=== PATIENT | female | born 1955 | race Caucasian/White ===

== ENCOUNTER 2017-08-29 16:42 | Inpatient (IN) | payer MEDICARE, MEDICAID, OTHER ==
[~2017-08-29] VITALS: Ht 165.1 cm; Wt 72.4 kg
[2017-08-29 17:47] VITALS: BP 158/72; PULSE 86; RESP 18; TEMP 98.4; O2SAT 97
--- NOTE | 2017-08-29 17:57 | PD ---
HPI Chief Complaint: Suicide Ideation/Attempt Time Seen by Provider: 17:40 Travel History International Travel<30 days: No Contact w/Intl Traveler<30days: No Traveled to known affect area: No History of Present Illness HPI Patient is a 62-year-old female who presents to emergency room under Cha act for suicidal ideation. Patient reports that she attempted to commit suicide by cutting her left wrist today with a razor blade, that she is depressed, reports history of bipolar disorder with severe depression, reports that she thinks that her niece called police officers today. Patient reports that she tried to commit suicide in the past, usually this is by cutting. Patient reports that she has been compliant with her medications, denies use of any alcohol or drugs. Patient reports that her tetanus is up-to-date. PFSH Past Medical History Bipolar Disorder: Yes Depression: Yes Diabetes: Yes Patient Takes Glucophage: Yes Influenza Vaccination: Yes ?: Not Tubal Ligation: Yes Past Surgical History Surgical History: No Previous Surgery Social History Alcohol Use: Yes (occasionally) Tobacco Use: No Substance Use: No Allergies-Medications (Allergen,Severity, Reaction): Coded Allergies: No Known Allergies (Unverified , 08/29/17) Reported Meds & Prescriptions Reported Meds & Active Scripts Active Active Prescriptions or Reported Medications Unobtainable Review of Systems General / Constitutional: No: Fever Eyes: No: Visual changes HENT: No: Headaches Cardiovascular: No: Chest Pain or Discomfort Respiratory: No: Shortness of Breath Gastrointestinal: No: Abdominal Pain Genitourinary: No: Dysuria Musculoskeletal: No: Pain Skin: No Rash Neurologic: No: Weakness Psychiatric: Positive: Depression, Suicidal Ideations, No: Homicidal Ideation Endocrine: No: Polydipsia Hematologic/Lymphatic: No: Easy Bruising Physical Exam Narrative GENERAL: NAD SKIN: Focused skin assessment warm/dry. Patient with a superficial laceration to left wrist HEAD: Atraumatic. Normocephalic. EYES: Pupils equal and round. No scleral icterus. No injection or drainage. ENT: No nasal bleeding or discharge. Mucous membranes pink and moist. NECK: Trachea midline. No JVD. CARDIOVASCULAR: Regular rate and rhythm. No murmur appreciated. RESPIRATORY: No accessory muscle use. Clear to auscultation. Breath sounds equal bilaterally. GASTROINTESTINAL: Abdomen soft, non-tender, nondistended. Hepatic and splenic margins not palpable. MUSCULOSKELETAL: No obvious deformities. No clubbing. No cyanosis. No edema. NEUROLOGICAL: Awake and alert. No obvious cranial nerve deficits. Motor grossly within normal limits. Normal speech. PSYCHIATRIC: Flat mood and affect; +SI -HI Data Data Last Documented VS Vital Signs Date Time Temp Pulse Resp B/P (MAP) Pulse Ox O2 Delivery O2 Flow Rate FiO2 08/29/17 17:47 98.4 86 18 158/72 (100) 97 Room Air Orders Orders Complete Blood Count With Diff (08/29/17 17:40) Comprehensive Metabolic Panel (08/29/17 17:40) Psych Screen (08/29/17 17:40) Drug Screen, Random Urine (08/29/17 17:40) Alcohol (Ethanol) (08/29/17 17:40) Salicylates (Aspirin) (08/29/17 17:40) Tylenol (Acetaminophen) (08/29/17 17:40) Labs Laboratory Tests Test 08/29/17 18:10 White Blood Count 11.7 TH/MM3 Red Blood Count 3.59 MIL/MM3 Hemoglobin 10.7 GM/DL Hematocrit 32.2 % Mean Corpuscular Volume 89.6 FL Mean Corpuscular Hemoglobin 29.6 PG Mean Corpuscular Hemoglobin Concent 33.1 % Red Cell Distribution Width 13.4 % Platelet Count 320 TH/MM3 Mean Platelet Volume 7.7 FL Neutrophils (%) (Auto) 67.1 % Lymphocytes (%) (Auto) 22.0 % Monocytes (%) (Auto) 6.5 % Eosinophils (%) (Auto) 4.0 % Basophils (%) (Auto) 0.4 % Neutrophils # (Auto) 7.9 TH/MM3 Lymphocytes # (Auto) 2.6 TH/MM3 Monocytes # (Auto) 0.8 TH/MM3 Eosinophils # (Auto) 0.5 TH/MM3 Basophils # (Auto) 0.0 TH/MM3 CBC Comment DIFF FINAL Differential Comment Blood Urea Nitrogen 21 MG/DL Creatinine 1.65 MG/DL Random Glucose 130 MG/DL Total Protein 7.4 GM/DL Albumin 4.2 GM/DL Calcium Level 9.1 MG/DL Alkaline Phosphatase 45 U/L Aspartate Amino Transf (AST/SGOT) 33 U/L Alanine Aminotransferase (ALT/SGPT) 35 U/L Total Bilirubin 0.6 MG/DL Sodium Level 134 MEQ/L Potassium Level 4.6 MEQ/L Chloride Level 98 MEQ/L Carbon Dioxide Level 27.4 MEQ/L Anion Gap 9 MEQ/L Estimat Glomerular Filtration Rate 31 ML/MIN Salicylates Level LESS THAN 1.7 MG/DL Acetaminophen Level LESS THAN 2.0 MCG/ML Ethyl Alcohol Level LESS THAN 3 MG/DL MDM Medical Decision Making Medical Screen Exam Complete: Yes Emergency Medical Condition: Yes Medical Record Reviewed: Yes Interpretation(s) Vital Signs Date Time Temp Pulse Resp B/P (MAP) Pulse Ox O2 Delivery O2 Flow Rate FiO2 08/29/17 17:47 98.4 86 18 158/72 (100) 97 Room Air Differential Diagnosis Suicide ideation, bipolar disorder, major depressive disorder Narrative Course Psychiatric screening labs ordered, with superficial abrasions to her left wrist , no active bleeding, tetanus is up-to-date. CBC & BMP Diagram 08/29/17 18:10 Total Protein 7.4, Albumin 4.2, Calcium Level 9.1, Alkaline Phosphatase 45, Aspartate Amino Transf (AST/SGOT) 33, Alanine Aminotransferase (ALT/SGPT) 35, Total Bilirubin 0.6 Diagnosis Primary Impression: Suicidal ideations Additional Impressions: Anemia Renal insufficiency Scripts Unable to Obtain Active Prescriptions or Reported Meds Nisa Bennett DO Aug 29, 2017 17:57
[2017-08-29 19:07] LABS: AUTOMATED NEUTROPHIL # 7.9 TH/MM3 (1.8-7.7); BASOPHIL % 0.4 % (0.0-2.0); EOSINOPHIL # 0.5 TH/MM3 (0-0.4); HEMATOCRIT 32.2 % (35.0-46.0); HEMOGLOBIN 10.7 GM/DL (11.6-15.3); LYMPHOCYTE # 2.6 TH/MM3 (1.0-4.8); MEAN CELL VOLUME 89.6 FL (80.0-100.0); MEAN CORPUSCULAR HEMOGLOBIN 29.6 PG (27.0-34.0); MEAN CORPUSCULAR HGB CONC 33.1 % (32.0-36.0); MEAN PLATELET VOLUME 7.7 FL (7.0-11.0); MONO % 6.5 % (0.0-8.0); MONOCYTE # 0.8 TH/MM3 (0-0.9); NEUT % 67.1 % (16.0-70.0); PLATELET COUNT 320 TH/MM3 (150-450); RED BLOOD COUNT 3.59 MIL/MM3 (4.00-5.30); RED CELL DISTRIBUTION WIDTH 13.4 % (11.6-17.2); WHITE BLOOD COUNT 11.7 TH/MM3 (4.0-11.0)
[2017-08-29 19:25] LABS: ALT (GPT) 35 U/L (10-53)
[2017-08-29 19:27] LABS: ALKALINE PHOSPHATASE 45 U/L (45-117); TOTAL BILIRUBIN ADULT 0.6 MG/DL (0.2-1.0); TOTAL PROTEIN 7.4 GM/DL (6.4-8.2)
[2017-08-29 19:37] LABS: ACETAMINOPHEN LESS THAN 2.0 MCG/ML (10.0-30.0); ALBUMIN 4.2 GM/DL (3.4-5.0); AST (GOT) 33 U/L (15-37); BICARBONATE 27.4 MEQ/L (21.0-32.0); BLOOD UREA NITROGEN 21 MG/DL (7-18); CALCIUM 9.1 MG/DL (8.5-10.1); CHLORIDE 98 MEQ/L (98-107); CREATININE 1.65 MG/DL (0.50-1.00); GLOMERULAR FILTRATION RATE 31 ML/MIN (>89); GLUCOSE,RANDOM 130 MG/DL (74-106); SODIUM (NA) 134 MEQ/L (136-145)
[2017-08-29 20:19] VITALS: BP 180/85; PULSE 88; RESP 18; TEMP 98.6; O2SAT 97
--- NOTE | 2017-08-29 22:16 | PD ---
History of Present Illness Chief Complaint: Suicide Ideation/Attempt Time Seen by Provider: 22:00 Travel History International Travel<30 Days: No Contact w/Intl Traveler<30days: No Known affected area: No Legal Status Legal Status: [place] Act History of Present Illness: History of Present Illness HPI Patient is a 62-year-old female with reported history of bipolar disorder who presents to emergency room under Cha act initiated by JOHNNY . The document alleges that family members reported that the patient" used a razor and cut her left wrist in an attempt to kill herself." The patient cut her left wrist on Saturday while she was at her house in [place] and then again today at her niece's house states it was because " the voices told me to do it". The patient is a poor historian and I contacted her niece Charlene at [phone] to obtain collateral information. The niece informs me that she picked the patient up in [place] and brought her here after she found out that she had cut her self. The patient told her that the voices were telling her to do so. The cuts were superficial in nature. She does not know if she has been taking her mediation. She plans on having the patient stay with her for one week and then the patient's daughter will assume take her back to [place]. I have asked her to call the patient's psychiatric provider to obtain a list of her mediations that she is currently prescribed since she informs me that the patient has a " bag full of pills". The patient is alert and oriented female who appears older than stated age. She is alert and oriented. She relates in a childlike manner with this rewriter. She is observed rocking back and forth at times. She denies hearing voices at this time. She does stat e that she cut herself because " the voices told me to ". She also reports that the voices are coming from the wall and that she also sees shadows. She does not remember the names of her prescribed medication. No current suicidal or homicidal ideation, intent or plan. She does not appear internally preoccupied. Denies significant depression or anxiety. No previous suicide attempts are reported. EMR reviewed. No previous contact with [facility] psychiatry. Negative toxicology. PFSH Past Medical History Bipolar Disorder: Yes Depression: Yes Diabetes: Yes Patient Takes Glucophage: Yes Influenza Vaccination: Yes ?: Not Tubal Ligation: Yes Past Surgical History Surgical History: No Previous Surgery Psychiatric History Psychiatric History Hx Psychiatric Treatment: Reports first received tretanmet 4 yeras ago and that she has had at least 4 hospitalizations including PHP. Last hosp 2 years agoat [place] [facility]. Sees [facility] for outpatietn care. History of Inpatient Treatment: Yes Guns or firearms in home: No Social History Born in [place]. Graduated high school and worked in [employer] x 7 years. Last worked 5 years ago . Currently is disabled x 17 years. Has 2 adult children. Lives in [place] with her 75 year old sister. Hx Alcohol Use: Yes (occasionally) Hx Tobacco Use: No Hx Substance Use: No Hx of Substance Use Treatment: No Family Psychiatric History Negative Allergies-Medications (Allergen,Severity, Reaction): Coded Allergies: No Known Allergies (Unverified , 08/29/17) Reported Meds & Prescriptions Reported Meds & Active Scripts Active Active Prescriptions or Reported Medications Unobtainable Review of Systems Except as stated in HPI: all other systems reviewed are Neg Mental Status Examination Appearance: Appropriate Consciousness: Alert Orientation: x4 Motor Activity: Normal gait Speech: Unremarkable Language: Adequate Fund of Knowledge: Adequate Attention and Concentration: Easily Distracted Memory: Unremarkable Mood: Appropriate Affect: Appropriate Thought Process & Associations: Intact, Linear Thought Content: Appropriate Hallucination Type: Auditory (Non specific at this time.) Delusion Type: None Suicidal Ideation: No Suicidal Plan: No Suicidal Intention: No Homicidal Ideation: No Homicidal Plan: No Homicidal Intention: No Insight: Poor Judgment: Impulsive MDM Medical Decision Making Medical Record Reviewed: Yes Assessment/Plan Patient is a 62-year-old female with reported history of bipolar disorder who presents to emergency room under Cha act initiated by JOHNNY . The document alleges that family members reported that the patient" used a razor and cut her left wrist in an attempt to kill herself." The patient cut her left wrist on Saturday while she was at her house in [place] and then again today at her niece's house and states it was because the voices told me to do it". She reports that she is medication compliant but is unable to tell me the name of her medication. I have contacted her niece, Charleen who does not have a medication list but she will obtain it tomorrow. She has made plans for the patient to stay with her for one week and then she will be returning to her daughter's house. I will keep the patient here in [place] for further monitoring overnight. I have ordered Seroquel for her for tonight. Patient can be evaluated again in the morning for disposition. Orders Orders Complete Blood Count With Diff (08/29/17 17:40) Comprehensive Metabolic Panel (08/29/17 17:40) Psych Screen (08/29/17 17:40) Drug Screen, Random Urine (08/29/17 17:40) Alcohol (Ethanol) (08/29/17 17:40) Salicylates (Aspirin) (08/29/17 17:40) Tylenol (Acetaminophen) (08/29/17 17:40) Results Vital Signs Date Time Temp Pulse Resp B/P (MAP) Pulse Ox O2 Delivery O2 Flow Rate FiO2 08/29/17 20:19 98.6 88 18 180/85 (116) 97 Room Air 08/29/17 17:47 98.4 86 18 158/72 (100) 97 Room Air Laboratory Tests Test 08/29/17 18:10 08/29/17 20:45 White Blood Count 11.7 Red Blood Count 3.59 Hemoglobin 10.7 Hematocrit 32.2 Mean Corpuscular Volume 89.6 Mean Corpuscular Hemoglobin 29.6 Mean Corpuscular Hemoglobin Concent 33.1 Red Cell Distribution Width 13.4 Platelet Count 320 Mean Platelet Volume 7.7 Neutrophils (%) (Auto) 67.1 Lymphocytes (%) (Auto) 22.0 Monocytes (%) (Auto) 6.5 Eosinophils (%) (Auto) 4.0 Basophils (%) (Auto) 0.4 Neutrophils # (Auto) 7.9 Lymphocytes # (Auto) 2.6 Monocytes # (Auto) 0.8 Eosinophils # (Auto) 0.5 Basophils # (Auto) 0.0 CBC Comment DIFF FINAL Differential Comment Blood Urea Nitrogen 21 Creatinine 1.65 Random Glucose 130 Total Protein 7.4 Albumin 4.2 Calcium Level 9.1 Alkaline Phosphatase 45 Aspartate Amino Transf (AST/SGOT) 33 Alanine Aminotransferase (ALT/SGPT) 35 Total Bilirubin 0.6 Sodium Level 134 Potassium Level 4.6 Chloride Level 98 Carbon Dioxide Level 27.4 Anion Gap 9 Estimat Glomerular Filtration Rate 31 Salicylates Level LESS THAN 1.7 Acetaminophen Level LESS THAN 2.0 Ethyl Alcohol Level LESS THAN 3 Urine Opiates Screen NEG Urine Barbiturates Screen NEG Urine Amphetamines Screen NEG Urine Benzodiazepines Screen NEG Urine Cocaine Screen NEG Urine Cannabinoids Screen NEG Diagnosis Primary Impression: Bipolar disorder with psychotic features Prescriptions Unable to Obtain Active Prescriptions or Reported Meds Rozina Gallego [facility] Aug 29, 2017 22:16
[2017-08-29] MEDS ORDERED: QUEtiapine FUMARATE 100 MG TAB PO ONE ×2 (22:45)
[2017-08-30 01:59] VITALS: BP 150/68; PULSE 83; RESP 18; O2SAT 98
--- NOTE | 2017-08-30 02:17 | PD ---
Physical Exam Narrative I was asked to evaluate patient for patient was found on the floor. Patient reports that she rolled out of bed hitting her head. Patient reports pain in right frontal lobe describes a headache without radiation. Patient denies any nausea, vomiting, neck pain, change in vision, dizziness, chest pain, or shortness of breath. Patient denies being on any blood thinners. Denies anything making this better or worse. GENERAL: Well-developed, overly nourished, in no acute distress, and non-ill appearing. SKIN: Focused skin assessment warm and dry. Abrasion contusion noted right frontal lobe. HEAD: Atraumatic. Normocephalic. EYES: Pupils equal and round. EOMI. No scleral icterus. No injection or drainage. NECK: Trachea midline. Supple. No nuclear rigidity. RESPIRATORY: No accessory muscle use. No respiratory distress. MUSCULOSKELETAL: No obvious deformities. No clubbing. No cyanosis. No edema. Full range of motion. NEUROLOGICAL: Awake and alert. No obvious cranial nerve deficits. Motor grossly within normal limits. Normal speech. Normal gait with assist. PSYCHIATRIC: Appropriate mood and affect; insight and judgment normal. Data Data Last Documented VS Vital Signs Date Time Temp Pulse Resp B/P (MAP) Pulse Ox O2 Delivery O2 Flow Rate FiO2 08/30/17 01:59 83 18 150/68 (95) 98 Room Air 08/29/17 20:19 98.6 Orders Orders Complete Blood Count With Diff (08/29/17 17:40) Comprehensive Metabolic Panel (08/29/17 17:40) Psych Screen (08/29/17 17:40) Drug Screen, Random Urine (08/29/17 17:40) Alcohol (Ethanol) (08/29/17 17:40) Salicylates (Aspirin) (08/29/17 17:40) Tylenol (Acetaminophen) (08/29/17 17:40) Quetiapine (Seroquel) (08/29/17 22:45) Ct Brain W/O Iv Contrast(Rout) (08/30/17 ) Ct Cerv Spine W/O Contrast (08/30/17 ) Labs Laboratory Tests Test 08/29/17 18:10 08/29/17 20:45 White Blood Count 11.7 TH/MM3 Red Blood Count 3.59 MIL/MM3 Hemoglobin 10.7 GM/DL Hematocrit 32.2 % Mean Corpuscular Volume 89.6 FL Mean Corpuscular Hemoglobin 29.6 PG Mean Corpuscular Hemoglobin Concent 33.1 % Red Cell Distribution Width 13.4 % Platelet Count 320 TH/MM3 Mean Platelet Volume 7.7 FL Neutrophils (%) (Auto) 67.1 % Lymphocytes (%) (Auto) 22.0 % Monocytes (%) (Auto) 6.5 % Eosinophils (%) (Auto) 4.0 % Basophils (%) (Auto) 0.4 % Neutrophils # (Auto) 7.9 TH/MM3 Lymphocytes # (Auto) 2.6 TH/MM3 Monocytes # (Auto) 0.8 TH/MM3 Eosinophils # (Auto) 0.5 TH/MM3 Basophils # (Auto) 0.0 TH/MM3 CBC Comment DIFF FINAL Differential Comment Blood Urea Nitrogen 21 MG/DL Creatinine 1.65 MG/DL Random Glucose 130 MG/DL Total Protein 7.4 GM/DL Albumin 4.2 GM/DL Calcium Level 9.1 MG/DL Alkaline Phosphatase 45 U/L Aspartate Amino Transf (AST/SGOT) 33 U/L Alanine Aminotransferase (ALT/SGPT) 35 U/L Total Bilirubin 0.6 MG/DL Sodium Level 134 MEQ/L Potassium Level 4.6 MEQ/L Chloride Level 98 MEQ/L Carbon Dioxide Level 27.4 MEQ/L Anion Gap 9 MEQ/L Estimat Glomerular Filtration Rate 31 ML/MIN Salicylates Level LESS THAN 1.7 MG/DL Acetaminophen Level LESS THAN 2.0 MCG/ML Ethyl Alcohol Level LESS THAN 3 MG/DL Urine Opiates Screen NEG Urine Barbiturates Screen NEG Urine Amphetamines Screen NEG Urine Benzodiazepines Screen NEG Urine Cocaine Screen NEG Urine Cannabinoids Screen NEG MDM Supervised Visit with GREG: No Interpretation(s) Last Impressions Head CT 08/30/17 Signed Impressions: Service Date/Time: Wednesday, August 30, 2017 02:24 - CONCLUSION: Negative noncontrast head CT. Dwight Carey MD Cervical Spine CT 08/30/17 Signed Impressions: Service Date/Time: Wednesday, August 30, 2017 02:26 - CONCLUSION: Intact cervical spine. Degenerative changes as above. Dwight Carey MD Narrative Course Patient seen and evaluated. CT of the neck were ordered to evaluate patient's questionable rolling out of bed reported subjective headache. Pending CT results patient will be admitted medically cleared for continued psychiatric evaluation. CT results were reviewed. Patient is still medically cleared for further treatment and evaluation by psychiatric department. Diagnosis Primary Impression: Bipolar disorder with psychotic features Scripts Unable to Obtain Active Prescriptions or Reported Meds Zack Cruz Aug 30, 2017 02:16
--- NOTE | 2017-08-30 02:53 | RADRPT ---
EXAM DATE/TIME: 08/30/2017 02:24 [facility] COMPARISON: No previous studies available for comparison. INDICATIONS : Trauma, fall. RADIATION DOSE: 56.35 CTDIvol (mGy) MEDICAL HISTORY : None SURGICAL HISTORY : None. ENCOUNTER: Initial ACUITY: 1 day PAIN SCALE: 0/10 LOCATION: cranial TECHNIQUE: Multiple contiguous axial images were obtained of the head. Using automated exposure control and adj ustment of the mA and/or kV according to patient size, radiation dose was kept as low as reasonably a chievable to obtain optimal diagnostic quality images. DICOM format image data is available electro nically for review and comparison. FINDINGS: CEREBRUM: The ventricles are normal for age. No evidence of midline shift, mass lesion, hemorrhage or acute in farction. No extra-axial fluid collections are seen. POSTERIOR FOSSA: The cerebellum and brainstem are intact. The 4th ventricle is midline. The cerebellopontine angle i s unremarkable. EXTRACRANIAL: The visualized portion of the orbits is intact. SKULL: The calvaria is intact. No evidence of skull fracture. CONCLUSION: Negative noncontrast head CT. Dwight Carey MD on August 30, 2017 at 2:51 Board Certified Radiologist. This report was verified electronically.
--- NOTE | 2017-08-30 02:55 | RADRPT ---
EXAM DATE/TIME: 08/30/2017 02:26 [facility] COMPARISON: No previous studies available for comparison. INDICATIONS : Trauma, fall. RADIATION DOSE: 37.10 CTDIvol (mGy) MEDICAL HISTORY : None SURGICAL HISTORY : None. ENCOUNTER: Initial ACUITY: 1 day PAIN SCALE: 0/10 LOCATION: neck TECHNIQUE: Volumetric scanning of the cervical spine was performed. Multiplanar reconstructions in the sagittal, coronal and oblique axial planes were performed. Using automated exposure control and adjustment o f the mA and/or kV according to patient size, radiation dose was kept as low as reasonably achievable to obtain optimal diagnostic quality images. DICOM format image data is available electronically f or review and comparison. FINDINGS: Cervical spine alignment is normal. Vertebral bodies have normal height. No cortical break or trabecu lar disruption. Severe osteoarthritis seen anteriorly at C1/C2. Moderate to severe disc space narrowing with broad posterior disc osteophyte complexes are seen at C4 /C5, C5/C6 and C6/C7. There is focal ossification of the posterior longitudinal ligament at C4/C5. CONCLUSION: Intact cervical spine. Degenerative changes as above. Dwight Carey MD on August 30, 2017 at 2:52 Board Certified Radiologist. This report was verified electronically.
[2017-08-30 05:22] VITALS: BP 131/63; PULSE 67; RESP 19; O2SAT 98
[2017-08-30] MEDS ORDERED: LISI2.5T3 PO ×2 (11:42)
[2017-08-30] MEDS ORDERED: LAMO100T PO ×2 (11:43)
[2017-08-30] MEDS ORDERED: CITA20TA4 PO ×2 (11:43)
[2017-08-30] MEDS ORDERED: HYDR25TA5 PO ×2 (11:44)
[2017-08-30] MEDS ORDERED: FENO160T PO ×2 (11:44)
[2017-08-30] MEDS ORDERED: diphenhydrAMINE HCL 50 MG CAP PO PRN ×2 (11:45)
[2017-08-30] MEDS ORDERED: DEXI60CA2 ×2 (11:45)
[2017-08-30] MEDS ORDERED: diphenhydrAMINE HCL 50 MG/ML VIAL IM PRN ×2 (11:45)
[2017-08-30] MEDS ORDERED: LORazepam 2 MG/ML VIAL IM PRN ×2 (11:45)
[2017-08-30] MEDS ORDERED: LORazepam 1 MG TAB PO PRN ×2 (11:45)
[2017-08-30] MEDS ORDERED: ALUMINUM/MAGNESIUM/SIMETH 30 ML CUP PO PRN ×2 (11:45)
[2017-08-30] MEDS ORDERED: NOVOLOGMXP SQ ×4 (11:45→11:46)
[2017-08-30] MEDS ORDERED: MAGNESIUM HYDROXIDE SUSP 30 ML CUP PO PRN ×2 (11:45)
[2017-08-30] MEDS ORDERED: GLIP5TAB8 PO ×2 (11:47)
[2017-08-30] MEDS ORDERED: METF1000 PO ×2 (11:47)
[2017-08-30] MEDS ORDERED: NAPR500T PO ×2 (11:48)
[2017-08-30] MEDS ORDERED: VENL75CA44 PO ×2 (11:48)
[2017-08-30] MEDS ORDERED: VENL150T PO ×2 (11:49)
--- NOTE | 2017-08-30 11:53 | HHI.HP ---
Provisional Diagnosis Admission Date [place]. Schizoaffective disorder, depressed type Certification of Person's Competence To Provide Express and Informed Consent I have personally examined Es Walters , a person being served at [facility] on, Aug 30, 2017 11:43. Express and informed consent means consent voluntarily given in writing, by a competent person, after sufficient explanation and disclosure of the subject matter involved to enable the person to make a knowing and willful decision without any element of force, fraud, deceit, duress, or other form of constraint or coercion. This person is 18 years of age or older, is not now known to be incompetent to consent to treatment with a guardian advocate, and does not have a health care surrogate or proxy currently making medical treatment decisions. I have found this person to be one of the following: [X] Competent to provide express and informed consent, as defined above, for voluntary admission to this facility and is competent to provide express and informed consent for treatment. He/she has the consistent capacity to make well reasoned, willful, and knowing decisions concerning his or her medical or mental health treatment. The person fully and consistently understands the purpose of the admission for examination/placement and is fully capable of personally exercising all rights assured [place] Incompetent to provide express and informed consent to voluntary admission, and this is incompetent to provide express and informed consent to treatment. The person must be transferred to involuntary status and a petition for a guardian advocate filed with the Circuit Court. [] Refusing to provide express and informed consent to voluntary admission but is competent to provide express and informed consent for treatment. The person must be discharged or transferred to involuntary status. Form shall be completed within 24 hours of a person's arrival at the receiving facility and filed in the clinical record of each person: 1. Admitted on a voluntary basis 2. Permitted to provide express and informed consent to his/her own treatment 3. Allowed to transfer from involuntary to voluntary status 4. Prior to permitting a person to consent to his or her own treatment after having been previously found incompetent to consent to treatment. History of Present Illness Capacity: Has Capacity HPI 62-year-old female brought in under a Cha act for self-injurious behavior. Patient has apparently cut her left wrist twice in the last week. She is repeatedly asserting "the voices told me to do it". She claims the voices come from the jo. She has also reported to our nurse practitioner, Rozina, that she sees shadows. She is afraid in general of being harmed by others but feels safer in the hospital. This physician notes the patient has a multiyear history of mental illness with repeated psychiatric hospitalizations as well as some type of treatment at a residential facility in [place]. At this time the patient is unable to contract for safety. She reportedly does not hear the voices in the emergency department funmilayo pod room but did report hearing the voices telling her to harm herself, at her niece's home. She was staying at her niece's home until her daughter could care for her. The patient is disabled from work as a result of these mental illness symptoms. She is obviously distraught, tearful, anxious, paranoid, and afraid of the command auditory hallucinations telling her to harm herself. She denies the use of alcohol or drugs at this time. Review of Systems Psychiatric: COMPLAINS OF: Anxiety, Hallucinations, Suicidal Ideation, Delusions Except as stated in HPI: all other systems reviewed are Neg Past Psych History Psychological trauma history Lives in [place] and is treated there with a "bag full of medicines". Unknown for psychological trauma. Violence risk - others (6 mos) Minimal to moderate Violence risk - self (6 mos) High Substance Abuse History Drugs/Alcohol past 12 months Denied Past Family Social History Coded Allergies: No Known Allergies (Unverified , 08/30/17) Per Pharmacist - [facility] [phone]. Reported Medications Venlafaxine ER 24 HR (Venlafaxine ER 24 HR) 150 Mg Tab, 150 MG PO DAILY, #30 TAB 0 Refills 08/30/17 Venlafaxine ER 24 HR (Venlafaxine ER 24 HR) 75 Mg Cap, 75 MG PO DAILY, #30 CAP 0 Refills 08/30/17 Naproxen (Naproxen) 500 Mg Tab, 500 MG PO BID, #60 TAB 0 Refills 08/30/17 Glipizide (Glipizide) 5 Mg Tab, 5 MG PO DAILY for Blood Sugar Management, #30 TAB 0 Refills Take 30 minutes before a meal 08/30/17 Metformin (Metformin) 1,000 Mg Tab, 1000 MG PO BIDPC for Blood Sugar Management , #60 TAB 0 Refills 08/30/17 Insulin Aspart Protam-Asp 70-30 Inj (Novolog Mix 70-30 Inj) 1,000 Unit/10 Ml Vial, 32 UNITS SQ DAILY@1600 for Blood Sugar Management, #10 ML 0 Refills 08/30/17 Insulin Aspart Protam-Asp 70-30 Inj (Novolog Mix 70-30 Inj) 1,000 Unit/10 Ml Vial, 42 UNITS SQ DAILY@0600 for Blood Sugar Management, #10 ML 0 Refills 08/30/17 Dexlansoprazole (Dexilant) 60 Mg Brendan.bp 08/30/17 Fenofibrate (Fenofibrate) 160 Mg Tab, 160 MG PO DAILY, #30 TAB 0 Refills 08/30/17 Hydrochlorothiazide (Hydrochlorothiazide) 25 Mg Tab, 25 MG PO DAILY, #30 TAB 0 Refills 08/30/17 Citalopram (Citalopram) 20 Mg Tab, 20 MG PO DAILY for Control Depression, #30 TAB 0 Refills 08/30/17 Lamotrigine (Lamotrigine) 100 Mg Tab, 100 MG PO BID for Control Seizures, #60 TAB 0 Refills 08/30/17 Lisinopril (Lisinopril) 2.5 Mg Tab, 2.5 MG PO DAILY, #30 TAB 0 Refills 08/30/17 Family Psych History Unknown Social History Lives with her older sister in [place]. 2 adult children. Unemployed although does have some history of employment years ago. Apparently is on disability. Does not reportedly abuses alcohol or drugs. Patient's Strengths (min. 2) Verbal and has access to healthcare. Physical Exam GENERAL: SKIN: Warm and dry. HEAD: Normocephalic. EYES: No scleral icterus. No injection or drainage. NECK: Supple, trachea midline. No JVD or lymphadenopathy. CARDIOVASCULAR: Regular rate and rhythm without murmurs, gallops, or rubs. RESPIRATORY: Breath sounds equal bilaterally. No accessory muscle use. GASTROINTESTINAL: Abdomen soft, non-tender, nondistended. MUSCULOSKELETAL: No cyanosis, or edema. BACK: Nontender without obvious deformity. No CVA tenderness. Vital Signs Vital Signs Date Time Temp Pulse Resp B/P (MAP) Pulse Ox O2 Delivery O2 Flow Rate FiO2 08/30/17 05:22 67 19 131/63 (85) 98 Room Air 08/29/17 20:19 98.6 Lab Results Test 08/29/17 18:10 08/29/17 20:45 White Blood Count 11.7 TH/MM3 Red Blood Count 3.59 MIL/MM3 Hemoglobin 10.7 GM/DL Hematocrit 32.2 % Mean Corpuscular Volume 89.6 FL Mean Corpuscular Hemoglobin 29.6 PG Mean Corpuscular Hemoglobin Concent 33.1 % Red Cell Distribution Width 13.4 % Platelet Count 320 TH/MM3 Mean Platelet Volume 7.7 FL Neutrophils (%) (Auto) 67.1 % Lymphocytes (%) (Auto) 22.0 % Monocytes (%) (Auto) 6.5 % Eosinophils (%) (Auto) 4.0 % Basophils (%) (Auto) 0.4 % Neutrophils # (Auto) 7.9 TH/MM3 Lymphocytes # (Auto) 2.6 TH/MM3 Monocytes # (Auto) 0.8 TH/MM3 Eosinophils # (Auto) 0.5 TH/MM3 Basophils # (Auto) 0.0 TH/MM3 CBC Comment DIFF FINAL Differential Comment Blood Urea Nitrogen 21 MG/DL Creatinine 1.65 MG/DL Random Glucose 130 MG/DL Total Protein 7.4 GM/DL Albumin 4.2 GM/DL Calcium Level 9.1 MG/DL Alkaline Phosphatase 45 U/L Aspartate Amino Transf (AST/SGOT) 33 U/L Alanine Aminotransferase (ALT/SGPT) 35 U/L Total Bilirubin 0.6 MG/DL Sodium Level 134 MEQ/L Potassium Level 4.6 MEQ/L Chloride Level 98 MEQ/L Carbon Dioxide Level 27.4 MEQ/L Anion Gap 9 MEQ/L Estimat Glomerular Filtration Rate 31 ML/MIN Salicylates Level LESS THAN 1.7 MG/DL Acetaminophen Level LESS THAN 2.0 MCG/ML Ethyl Alcohol Level LESS THAN 3 MG/DL Urine Opiates Screen NEG Urine Barbiturates Screen NEG Urine Amphetamines Screen NEG Urine Benzodiazepines Screen NEG Urine Cocaine Screen NEG Urine Cannabinoids Screen NEG Mental Status Examination Appearance: Appropriate Consciousness: Alert Orientation: Person, Place Motor Activity: Normal gait Speech: Hesitant Language: Adequate Fund of Knowledge: Adequate Attention and Concentration: Easily Distracted Memory: Unremarkable Mood: Sad, Anxious Affect: Sad, Anxious Thought Process & Associations: Intact, Circumstantial, Tangential Thought Content: Bizarre thinking, Thought blocking, Delusional Hallucination Type: Auditory (Non specific at this time.) Delusion Type: None, Paranoid Suicidal Ideation: Yes Suicidal Plan: Yes Suicidal Intention: Yes Homicidal Ideation: No Homicidal Plan: No Homicidal Intention: No Insight: Poor Judgment: Impulsive Assessment & Plan Problem List: (1) Schizoaffective disorder, depressive type ICD Codes: F25.1 - Schizoaffective disorder, depressive type Assessment & Plan Estimated LOS: days. 62-year-old female with multiyear psychiatric history and multiple psychiatric hospitalizations, presents under a Cha act for cutting her wrists on 2 separate occasions. On both occasions, the patient admits "the voices told me to do it". Patient therefore admitting to command auditory hallucinations and paranoia, suggesting that she harm herself and she is unable to resist. For these reasons the patient is being admitted for further evaluation and treatment. This physician has ordered a CBC and comprehensive metabolic panel to determine if any infectious process or metabolic process is causing or contributing to the patient's psychosis. Additionally, we are checking her hemoglobin A1c and lipids as she is overweight and has a history of diabetes, which may be exacerbated by her psychotropic medicines. This physician has also ordered thyroid stimulating hormone levels, vitamin B-12 and vitamin D levels, to determine if deficiencies in these areas are causing or contributing to her psychosis. She will also receive an EKG to determine her cardiac conduction status prior to altering her psychotropic medicines. This physician has asked for a hospitalist consult due to the patient's diabetes and multiple medical issues. This physician spoke with the patient's nurse, Saida, regarding her recent behavior. Finally, case management will be involved to obtain further information from family members and assist with disposition planning. Adrian Turcios MD Aug 30, 2017 11:53
[2017-08-30 12:05] VITALS: BP 144/66; PULSE 79; RESP 18; TEMP 98.6; O2SAT 96
[2017-08-30 14:30] VITALS: BP 162/72; PULSE 77; RESP 17; TEMP 98.7; O2SAT 96
[2017-08-30] MEDS: FENOFIBRATE 145 MG TAB PO SCH ×2 (16:30)
[2017-08-30] MEDS: INSULIN ASPAR PROT 70/30 1,000 UNITS/10 ML VIAL SQ SCH ×2 (16:30)
[2017-08-30] MEDS: LISINOPRIL 5 MG TAB PO SCH ×2 (16:30)
[2017-08-30] MEDS ORDERED: VENLAFAXINE HCL XR 75 MG CAP PO SCH ×4 (16:30)
[2017-08-30 17:33] VITALS: BP 126/68; PULSE 77; RESP 15; TEMP 96.9; O2SAT 97
[2017-08-30] MEDS: HYDROCHLOROTHIAZIDE 25 MG TAB PO SCH ×2 (17:43)
[2017-08-30] MEDS: glipiZIDE 5 MG TAB PO SCH ×2 (17:43)
[2017-08-30] MEDS: ACETAMINOPHEN 325 MG TAB PO PRN ×4 (17:45→20:45)
[2017-08-30] MEDS: metFORMIN HCL 500 MG TAB PO SCH ×2 (17:53)
[2017-08-30] MEDS: lamoTRIgine 100 MG TAB PO SCH ×2 (20:45)
[2017-08-30] MEDS: NAPROXEN 500 MG TAB PO SCH ×2 (20:49)
[2017-08-30 21:00] VITALS: BP 158/67; PULSE 97
[2017-08-31 05:16] VITALS: BP 157/69; PULSE 68; RESP 17; TEMP 98.2; O2SAT 97
[2017-08-31] MEDS: ACETAMINOPHEN 325 MG TAB PO PRN ×2 (06:38)
[2017-08-31] MEDS: INSULIN ASPAR PROT 70/30 1,000 UNITS/10 ML VIAL SQ SCH ×4 (08:00→16:00)
[2017-08-31] MEDS ORDERED: VENLAFAXINE HCL XR 75 MG CAP PO SCH ×4 (09:00)
[2017-08-31] MEDS: metFORMIN HCL 500 MG TAB PO SCH ×2 (09:12)
[2017-08-31] MEDS: glipiZIDE 5 MG TAB PO SCH ×2 (09:13)
[2017-08-31] MEDS: HYDROCHLOROTHIAZIDE 25 MG TAB PO SCH ×2 (09:13)
[2017-08-31] MEDS: lamoTRIgine 100 MG TAB PO SCH ×4 (09:13→21:33)
[2017-08-31] MEDS: FENOFIBRATE 145 MG TAB PO SCH ×2 (09:13)
[2017-08-31] MEDS: NAPROXEN 500 MG TAB PO SCH ×2 (09:13)
[2017-08-31] MEDS: LISINOPRIL 5 MG TAB PO SCH ×2 (09:15)
[2017-08-31] MEDS: CITALOPRAM HYDROBROMIDE 20 MG TAB PO SCH ×2 (09:15)
[2017-08-31 12:19] LABS: AUTOMATED NEUTROPHIL # 8.8 TH/MM3 (1.8-7.7); BASOPHIL # 0.1 TH/MM3 (0-0.2); BASOPHIL % 0.5 % (0.0-2.0); EOSINOPHIL # 0.5 TH/MM3 (0-0.4); HEMATOCRIT 35.8 % (35.0-46.0); LYMPH % 21.4 % (9.0-44.0); LYMPHOCYTE # 2.7 TH/MM3 (1.0-4.8); MEAN CELL VOLUME 88.8 FL (80.0-100.0); MEAN CORPUSCULAR HEMOGLOBIN 29.8 PG (27.0-34.0); MEAN CORPUSCULAR HGB CONC 33.6 % (32.0-36.0); MEAN PLATELET VOLUME 7.7 FL (7.0-11.0); MONOCYTE # 0.8 TH/MM3 (0-0.9); NEUT % 68.1 % (16.0-70.0); PLATELET COUNT 364 TH/MM3 (150-450); RED BLOOD COUNT 4.03 MIL/MM3 (4.00-5.30); RED CELL DISTRIBUTION WIDTH 13.1 % (11.6-17.2); WHITE BLOOD COUNT 12.9 TH/MM3 (4.0-11.0)
--- NOTE | 2017-08-31 12:31 | PD.CONS ---
HPI Service [facility] Consult Requested By Reason for Consult medical management Primary Care Physician Unknown Diagnoses: History of Present Illness patient is a 62 y/o female with history of hypertension, diabetes and bipolar disorder who was initially admitted to the psych unit because of depression and suicidal thoughts- when she tried to cut her wrist. at the time of my evaluation she was in no acute distress but complaining of some nausea. she denies any abdominal pain, emesis, constipation or diarrhea. reportedly she had a fall in ER. on further questioning she says that she keeps falling; this started about a year ago. she says that she doesn't have any prodromal symptoms before the falls and doesn't recall any syncopal episodes. she says that she saw a neurologist in [place] about three weeks ago and had a MRI of the brain - result of whic is not known. talking to the RN she had a near-fall incident earlier as well. Review of Systems Constitutional: DENIES: Fever, Weight loss, Chills, Night Sweats Eyes: DENIES: Blurred vision, Diplopia, Vision loss, Double Vision Ears, nose, mouth, throat: DENIES: Tinnitus, Vertigo, Throat pain, Epistaxis Respiratory: DENIES: Apneas, Cough, Snoring, Wheezing, Hemoptysis, Sputum production, Shortness of breath Cardiovascular: DENIES: Chest pain, Palpitations, Syncope, Dyspnea on Exertion , PND, Lower Extremity Edema, Orthopnea, Claudication Gastrointestinal: COMPLAINS OF: Nausea, DENIES: Abdominal pain, Black stools, Bloody stools, Constipation, Diarrhea, Vomiting, Difficulty Swallowing, Anorexia Genitourinary: DENIES: Urinary frequency, Urgency, Hematuria, Dysuria Musculoskeletal: DENIES: Joint pain, Muscle aches, Stiffness, Joint Swelling Integumentary: DENIES: Rash Neurologic: COMPLAINS OF: Abnormal gait, DENIES: Headache, Localized weakness, Paresthesias, Seizures, Speech Problems, Tremor, Poor Balance Psychiatric: COMPLAINS OF: Depression, Suicidal Ideation, DENIES: Anxiety, Confusion, Mood changes, Hallucinations, Agitation, Homicidal Ideation, Delusions Past Family Social History Allergies: Coded Allergies: No Known Allergies (Unverified , 08/30/17) Per Pharmacist - [facility] [phone]. Past Medical History diabetes mellitus hypertension bipolar disorder Past Surgical History appendectomy tubal ligation. Reported Medications metformin glipizide Insulin 70/30 Venlafaxine citalopram lamotrigine lisinopril fenofibrate Active Ordered Medications Current Medications Quetiapine Fumarate (SEROquel) 100 mg ONCE ONCE PO Last administered on 22:45; Start 08/29/17 at 22:45; Stop 08/29/17 at 22:46; Status DC Lorazepam (Ativan) 1 mg Q6H PRN PO MODERATE TO SEVERE ANXIETY; Start 08/30/17 at 11:45 Lorazepam (Ativan Inj) 1 mg Q6H PRN IM MODERATE TO SEVERE ANXIETY; Start at 11:45 Diphenhydramine HCl (Benadryl) 50 mg Q6H PRN PO For mild anxiety and/or EPS; Start 08/30/17 at 11:45 Diphenhydramine HCl (Benadryl Inj) 50 mg Q6H PRN IM For mild anxiety and/or EPS ; Start 08/30/17 at 11:45 Acetaminophen (Tylenol) 650 mg Q4H PRN PO Pain 1-5 or Temp >101F Last administered on 08/31/17 06:38; Start 08/30/17 at 11:45 Magnesium Hydroxide (Milk Of Magnesia Liq) 30 ml DAILY PRN PO CONSTIPATION; Start 08/30/17 at 11:45 Al Hydrox/Mg Hydrox/Simethicone (Mag-Al Plus Susp Liq) 30 ml Q6H PRN PO DYSPEPSIA Last administered on 08/31/17 11:13; Start 08/30/17 at 11:45 Trazodone HCl (Desyrel) 50 mg HS PRN PO INSOMNIA; Start 08/30/17 at 11:45 Citalopram Hydrobromide (CeleXA) 20 mg DAILY PO Last administered on 08/31/17 09:15; Start 08/31/17 at 09:00 Glipizide (Glucotrol) 5 mg DAILY PO Last administered on 08/31/17 09:13; Start 08/30/17 at 16:30 Hydrochlorothiazide (Hydrodiuril) 25 mg DAILY PO Last administered on 09:13; Start 08/30/17 at 16:30 Insulin Aspart Prota 70%/Aspart 30% (NovoLOG MIX 70/ 30 INJ) 32 units DAILY@ 1600 SQ Last administered on 08/30/17 16:30; Start 08/30/17 at 16:30 Insulin Aspart Prota 70%/Aspart 30% (NovoLOG MIX 70/ 30 INJ) 42 units DAILY@ 0600 SQ Last administered on 08/31/17 08:00; Start 08/31/17 at 06:00 Lamotrigine (LaMICtal) 100 mg BID PO Last administered on 08/31/17 09:13; Start 08/30/17 at 21:00 Metformin HCl (Glucophage) 1,000 mg BIDPC PO Last administered on 08/31/17 09: 12; Start 08/30/17 at 18:00 Naproxen (Naprosyn) 500 mg BID PO Last administered on 08/31/17 09:13; Start 08/30/17 at 21:00 Venlafaxine HCl (Effexor Xr) 75 mg DAILY PO ; Start 08/30/17 at 16:30; Stop 08/30/17 at 17:01; Status DC Venlafaxine HCl (Effexor Xr) 150 mg DAILY PO ; Start 08/30/17 at 16:30; Stop at 17:01; Status DC Fenofibrate (Tricor) 145 mg DAILY PO Last administered on 08/31/17 09:13; Start 08/30/17 at 16:30 Lisinopril (Prinivil) 2.5 mg DAILY PO Last administered on 08/31/17 09:15; Start 08/30/17 at 16:30 Venlafaxine HCl (Effexor Xr) 75 mg DAILY PO ; Start 08/31/17 at 09:00 Venlafaxine HCl (Effexor Xr) 150 mg DAILY PO ; Start 08/31/17 at 09:00 Family History heart disease in parents. Social History quit smoking 2-3 years ago- no drinking. Physical Exam Vital Signs Vital Signs Date Time Temp Pulse Resp B/P (MAP) Pulse Ox O2 Delivery O2 Flow Rate FiO2 08/31/17 10:15 16 08/31/17 07:40 16 08/31/17 05:16 98.2 68 17 157/69 (98) 97 08/30/17 17:33 96.9 77 15 126/68 (87) 97 08/30/17 14:40 08/30/17 14:30 98.7 77 17 162/72 (102) 96 Physical Exam GENERAL: This is a well-nourished, well-developed patient, in no apparent distress. SKIN: No rashes, ecchymoses or lesions. Cool and dry. HEAD: Atraumatic. Normocephalic. No temporal or scalp tenderness. EYES: Pupils equal round and reactive. Extraocular motions intact. No scleral icterus. No injection or drainage. ENT: Nose without bleeding, purulent drainage or septal hematoma. Throat without erythema, tonsillar hypertrophy or exudate. Uvula midline. Airway patent. NECK: Trachea midline. No JVD or lymphadenopathy. Supple, nontender, no meningeal signs. CARDIOVASCULAR: Regular rate and rhythm without murmurs, gallops, or rubs. RESPIRATORY: Clear to auscultation. Breath sounds equal bilaterally. No wheezes , rales, or rhonchi. GASTROINTESTINAL: Abdomen soft, non-tender, nondistended. No hepato-splenomegaly , or palpable masses. No guarding. MUSCULOSKELETAL: Extremities without clubbing, cyanosis, or edema. No joint tenderness, effusion, or edema noted. No calf tenderness. Negative Homans sign bilaterally. NEUROLOGICAL: Awake and alert. Cranial nerves II through XII intact. Motor and sensory grossly within normal limits. Five out of 5 muscle strength in all muscle groups. Normal speech. Laboratory Laboratory Tests Test 08/31/17 11:12 White Blood Count 12.9 Red Blood Count 4.03 Hemoglobin 12.0 Hematocrit 35.8 Mean Corpuscular Volume 88.8 Mean Corpuscular Hemoglobin 29.8 Mean Corpuscular Hemoglobin Concent 33.6 Red Cell Distribution Width 13.1 Platelet Count 364 Mean Platelet Volume 7.7 Neutrophils (%) (Auto) 68.1 Lymphocytes (%) (Auto) 21.4 Monocytes (%) (Auto) 6.0 Eosinophils (%) (Auto) 4.0 Basophils (%) (Auto) 0.5 Neutrophils # (Auto) 8.8 Lymphocytes # (Auto) 2.7 Monocytes # (Auto) 0.8 Eosinophils # (Auto) 0.5 Basophils # (Auto) 0.1 CBC Comment DIFF FINAL Differential Comment Result Diagram: 08/29/17180908/29/[id number] Imaging Last Impressions Head CT 08/30/17 0000 Signed Impressions: Service Date/Time: Wednesday, August 30, 2017 02:24 - CONCLUSION: Negative noncontrast head CT. Dwight Carey MD Cervical Spine CT 08/30/17 0000 Signed Impressions: Service Date/Time: Wednesday, August 30, 2017 02:26 - CONCLUSION: Intact cervical spine. Degenerative changes as above. Dwight Carey MD Assessment and Plan Assessment and Plan A/P - bipolar disorder with suicidal thoughts- management per psych. -nausea; antiemetics as needed for now- will monitor -frequent falls- fall precautions-consult PT- will obtain the result of MRI brain that she had recently.- will consider neurology consult. -diabetes mellitus; accu-check with SSI- hold metformin due to renal insufficiency- resume other meds. -hypertension; resume her home meds- will monitor and adjust the regimen as needed. -chronic renal insufficiency with unknown duration- suspect CKD due to diabetes and hypertension;avoid NSAIDs and nephrotoxins- BMP today pending- will monitor. thank you for the consult. Discussed Condition With the patient and RN. Maru Herrera MD Aug 31, 2017 12:31
[2017-08-31] MEDS ORDERED: GLUCAGON 1 MG/ML VIAL OTHER PRN ×2 (12:45)
[2017-08-31] MEDS ORDERED: DEXTROSE 50% IN WATER 50 ML VIAL(D50) IV PUSH PRN (12:45)
--- NOTE | 2017-08-31 12:53 | HHI.PYPN ---
Subjective Chief Complaint: psychosis Remarks Pt seen and discussed with staff. She has been isolative to her room and during brief periods of time in milieu, she sits with her head on the table. She denies hallucinations today or suicidal ideations. She states that the voices "are scared to come here. they are hiding in the house." She reports that she saw her psychiatrist a few weeks ago but can't remember if medication changes were made. She reports that she normally takes an antidepressant but can't remember the name. She reports that she has taken abilify in the past and thinks it may have been helpful and is willing to try it again. Risks vs benefits and potential side effects discussed. Mental Status Examination Appearance: Appropriate Consciousness: Alert Orientation: Person, Place Motor Activity: Normal gait Speech: Hesitant Language: Adequate Fund of Knowledge: Adequate Attention and Concentration: Easily Distracted Memory: Unremarkable Mood: Sad, Anxious Affect: Sad, Anxious Thought Process & Associations: Intact, Circumstantial, Tangential Thought Content: Bizarre thinking, Thought blocking, Delusional Hallucination Type: None Delusion Type: None, Paranoid Suicidal Ideation: Yes Suicidal Plan: Yes Suicidal Intention: Yes Homicidal Ideation: No Homicidal Plan: No Homicidal Intention: No Insight: Poor Judgment: Impulsive Results Labs Test 08/31/17 11:12 White Blood Count 12.9 TH/MM3 Red Blood Count 4.03 MIL/MM3 Hemoglobin 12.0 GM/DL Hematocrit 35.8 % Mean Corpuscular Volume 88.8 FL Mean Corpuscular Hemoglobin 29.8 PG Mean Corpuscular Hemoglobin Concent 33.6 % Red Cell Distribution Width 13.1 % Platelet Count 364 TH/MM3 Mean Platelet Volume 7.7 FL Neutrophils (%) (Auto) 68.1 % Lymphocytes (%) (Auto) 21.4 % Monocytes (%) (Auto) 6.0 % Eosinophils (%) (Auto) 4.0 % Basophils (%) (Auto) 0.5 % Neutrophils # (Auto) 8.8 TH/MM3 Lymphocytes # (Auto) 2.7 TH/MM3 Monocytes # (Auto) 0.8 TH/MM3 Eosinophils # (Auto) 0.5 TH/MM3 Basophils # (Auto) 0.1 TH/MM3 CBC Comment DIFF FINAL Differential Comment Vitals/IOs Vital Signs Date Time Temp Pulse Resp B/P (MAP) Pulse Ox O2 Delivery O2 Flow Rate FiO2 08/31/17 10:15 16 08/31/17 05:16 98.2 68 157/69 (98) 97 08/30/17 12:05 Room Air Intake and Output 08/31/17 08/31/17 09/01/17 08:00 16:00 00:00 Intake Total 360 ml Balance 360 ml Assessment & Plan Problem List: (1) Schizoaffective disorder, depressive type ICD Codes: F25.1 - Schizoaffective disorder, depressive type Assessment & Plan Pt was noted to have two orders for two different antidepressants (not given). Will discontinue effexor order as pt denies that this is one of her home medications and continue celexa. Will start abilify to target psychosis. Continue current tx plan. Estimated LOS: days Justification for Cont. Inpt. impairments in reality testing, monitoring for safety Enid Key MD Aug 31, 2017 12:53
[2017-08-31 13:19] LABS: ALBUMIN 4.2 GM/DL (3.4-5.0); ALKALINE PHOSPHATASE 51 U/L (45-117); ALT (GPT) 32 U/L (10-53); AST (GOT) 20 U/L (15-37); BICARBONATE 31.4 MEQ/L (21.0-32.0); BLOOD UREA NITROGEN 26 MG/DL (7-18); CALCIUM 9.9 MG/DL (8.5-10.1); CHLORIDE 98 MEQ/L (98-107); CHOLESTEROL 291 MG/DL (120-200); CHOLESTEROL/ HDL RATIO 6.27 RATIO; CREATININE 1.35 MG/DL (0.50-1.00); GLOMERULAR FILTRATION RATE 40 ML/MIN (>89); GLUCOSE,RANDOM 70 MG/DL (74-106); HDL CHOLESTEROL 46.4 MG/DL (40.0-60.0); LDL CHOLESTEROL 165 MG/DL (0-99); SODIUM (NA) 136 MEQ/L (136-145); TOTAL BILIRUBIN ADULT 0.4 MG/DL (0.2-1.0); TRIGLYCERIDES 400 MG/DL (42-150)
[2017-08-31 13:39] LABS: HEMOGLOBIN A1C 7.9 % (4.3-6.0)
[2017-08-31] MEDS: ONDANSETRON ODT 4 MG TAB PO PRN ×4 (14:41→21:58)
[2017-08-31] MEDS: INSULIN ASPART SUPPLEMENTAL SCALE SQ SCH ×4 (16:27→21:00)
[2017-08-31] MEDS: PANTOPRAZOLE SOD 40 MG DELAYED RELEASE TAB PO SCH ×2 (16:45)
[2017-08-31 18:00] VITALS: BP 145/67; PULSE 79; RESP 16; TEMP 98.2; O2SAT 95
[2017-08-31] MEDS: traZODone HCL 50 MG TAB PO PRN ×2 (21:58)
[2017-09-01 05:36] VITALS: BP 132/66; PULSE 75; RESP 18; TEMP 98.1; O2SAT 95
[2017-09-01] MEDS: INSULIN ASPAR PROT 70/30 1,000 UNITS/10 ML VIAL SQ SCH ×2 (06:00)
[2017-09-01] MEDS: INSULIN ASPART SUPPLEMENTAL SCALE SQ SCH ×8 (07:53→20:31)
[2017-09-01] MEDS: glipiZIDE 5 MG TAB PO SCH ×2 (09:33)
[2017-09-01] MEDS: ACETAMINOPHEN 325 MG TAB PO PRN ×2 (09:34)
[2017-09-01] MEDS: FENOFIBRATE 145 MG TAB PO SCH ×2 (09:34)
[2017-09-01] MEDS: HYDROCHLOROTHIAZIDE 25 MG TAB PO SCH ×2 (09:34)
[2017-09-01] MEDS: lamoTRIgine 100 MG TAB PO SCH ×4 (09:34→20:30)
[2017-09-01] MEDS: CITALOPRAM HYDROBROMIDE 20 MG TAB PO SCH ×2 (09:34)
[2017-09-01] MEDS: PANTOPRAZOLE SOD 40 MG DELAYED RELEASE TAB PO SCH ×2 (09:34)
[2017-09-01] MEDS: ARIPiprazole 2 MG TAB PO SCH ×2 (09:35)
[2017-09-01] MEDS: LISINOPRIL 5 MG TAB PO SCH ×2 (09:37)
--- NOTE | 2017-09-01 10:24 | HHI.PYPN ---
Subjective Chief Complaint: psychosis Remarks Pt seen and discussed with staff. She is compliant with medications and denies side effects. She has been less anxious today and participated in a unit activity. She reports that she is tolerating medications without side effects. She remains depressed and paranoid but denies AH. NoSI/HI Mental Status Examination Appearance: Appropriate Consciousness: Alert Orientation: Person, Place Motor Activity: Normal gait Speech: Hesitant Language: Adequate Fund of Knowledge: Adequate Attention and Concentration: Easily Distracted Memory: Unremarkable Mood: Sad, Anxious Affect: Sad, Anxious Thought Process & Associations: Intact, Circumstantial, Tangential Thought Content: Bizarre thinking, Thought blocking, Delusional Hallucination Type: None Delusion Type: Paranoid Suicidal Ideation: Yes Suicidal Plan: Yes Suicidal Intention: Yes Homicidal Ideation: No Homicidal Plan: No Homicidal Intention: No Insight: Poor Judgment: Impulsive Results Labs Test 08/31/17 11:12 White Blood Count 12.9 TH/MM3 Red Blood Count 4.03 MIL/MM3 Hemoglobin 12.0 GM/DL Hematocrit 35.8 % Mean Corpuscular Volume 88.8 FL Mean Corpuscular Hemoglobin 29.8 PG Mean Corpuscular Hemoglobin Concent 33.6 % Red Cell Distribution Width 13.1 % Platelet Count 364 TH/MM3 Mean Platelet Volume 7.7 FL Neutrophils (%) (Auto) 68.1 % Lymphocytes (%) (Auto) 21.4 % Monocytes (%) (Auto) 6.0 % Eosinophils (%) (Auto) 4.0 % Basophils (%) (Auto) 0.5 % Neutrophils # (Auto) 8.8 TH/MM3 Lymphocytes # (Auto) 2.7 TH/MM3 Monocytes # (Auto) 0.8 TH/MM3 Eosinophils # (Auto) 0.5 TH/MM3 Basophils # (Auto) 0.1 TH/MM3 CBC Comment DIFF FINAL Differential Comment Blood Urea Nitrogen 26 MG/DL Creatinine 1.35 MG/DL Random Glucose 70 MG/DL Total Protein 8.0 GM/DL Albumin 4.2 GM/DL Calcium Level 9.9 MG/DL Alkaline Phosphatase 51 U/L Aspartate Amino Transf (AST/SGOT) 20 U/L Alanine Aminotransferase (ALT/SGPT) 32 U/L Total Bilirubin 0.4 MG/DL Sodium Level 136 MEQ/L Potassium Level 4.1 MEQ/L Chloride Level 98 MEQ/L Carbon Dioxide Level 31.4 MEQ/L Anion Gap 7 MEQ/L Estimat Glomerular Filtration Rate 40 ML/MIN Hemoglobin A1c 7.9 % Triglycerides Level 400 MG/DL Cholesterol Level 291 MG/DL LDL Cholesterol 165 MG/DL HDL Cholesterol 46.4 MG/DL Cholesterol/HDL Ratio 6.27 RATIO Vitamin B12 Level 519 PG/ML 25-Hydroxy Vitamin D Total 10.7 ng/ML Thyroid Stimulating Hormone 3rd Gen 6.430 uIU/ML Vitals/IOs Vital Signs Date Time Temp Pulse Resp B/P (MAP) Pulse Ox O2 Delivery O2 Flow Rate FiO2 09/01/17 05:36 98.1 75 18 132/66 (88) 95 08/30/17 12:05 Room Air Intake and Output 09/01/17 09/01/17 09/02/17 08:00 16:00 00:00 Intake Total 0 ml Balance 0 ml Assessment & Plan Problem List: (1) Schizoaffective disorder, depressive type ICD Codes: F25.1 - Schizoaffective disorder, depressive type Assessment & Plan Continue current tx plan Estimated LOS: days Justification for Cont. Inpt. impairments in reality testing Enid Key MD Sep 01, 2017 10:24
--- NOTE | 2017-09-01 11:17 | EKG ---
Date Performed: 08/31/2017 Time Performed: 09:32:13 PTAGE: 62 years EKG: Sinus rhythm BORDERLINE LEFT AXIS DEVIATION NONSPECIFIC T-WAVE ABNORMALITY Left anterior fascicular block BORDERL INE ECG NO PREVIOUS TRACING DOCTOR: [place] Interpretating Date/Time 09/01/2017 11:16:25
--- NOTE | 2017-09-01 12:16 | HHI.PR ---
Subjective Remarks overall feeling better. no nausea or vomiting today. says that she worked with PT and ' she did fine'. no falls. blood sugar trend noted. d/w the RN. Objective Vitals Vital Signs Date Time Temp Pulse Resp B/P (MAP) Pulse Ox O2 Delivery O2 Flow Rate FiO2 09/01/17 05:36 98.1 75 18 132/66 (88) 95 08/31/17 18:00 98.2 79 16 145/67 (93) 95 I/O 08/31/17 08/31/17 08/31/17 09/01/17 09/01/17 09/01/17 07:00 15:00 23:00 07:00 15:00 23:00 Intake Total 120 ml 240 ml 750 ml 0 ml 480 ml Balance 120 ml 240 ml 750 ml 0 ml 480 ml Intake Oral 120 ml 240 ml 750 ml 0 ml 480 ml # Voids 1 1 1 Result Diagram: 08/31/17 1112 08/31/17 1112 Imaging Last Impressions Head CT 08/30/17 0000 Signed Impressions: Service Date/Time: Wednesday, August 30, 2017 02:24 - CONCLUSION: Negative noncontrast head CT. Dwight Carey MD Cervical Spine CT 08/30/17 0000 Signed Impressions: Service Date/Time: Wednesday, August 30, 2017 02:26 - CONCLUSION: Intact cervical spine. Degenerative changes as above. Dwight Craey MD Objective Remarks GENERAL: This is a well-nourished, well-developed patient, in no apparent distress. CARDIOVASCULAR: Regular rate and regular rhythm without murmurs, gallops, or rubs. RESPIRATORY: Clear to auscultation. Breath sounds equal bilaterally. No wheezes , rales, or rhonchi. GASTROINTESTINAL: Abdomen soft, non-tender, nondistended. Normal, active bowel sounds MUSCULOSKELETAL: Extremities without clubbing, cyanosis, or edema. NEURO: Alert & Oriented x4 to person, place, time, situation. Moves all ext x4 Medications and IVs Current Medications Quetiapine Fumarate (SEROquel) 100 mg ONCE ONCE PO Last administered on t 22:45; Start 08/29/17 at 22:45; Stop 08/29/17 at 22:46; Status DC Lorazepam (Ativan) 1 mg Q6H PRN PO MODERATE TO SEVERE ANXIETY Last administered on 08/31/17 14:41; Start 08/30/17 at 11:45 Lorazepam (Ativan Inj) 1 mg Q6H PRN IM MODERATE TO SEVERE ANXIETY; Start at 11:45 Diphenhydramine HCl (Benadryl) 50 mg Q6H PRN PO For mild anxiety and/or EPS; Start 08/30/17 at 11:45 Diphenhydramine HCl (Benadryl Inj) 50 mg Q6H PRN IM For mild anxiety and/or EPS ; Start 08/30/17 at 11:45 Acetaminophen (Tylenol) 650 mg Q4H PRN PO Pain 1-5 or Temp >101F Last administered on 09/01/17 09:34; Start 08/30/17 at 11:45 Magnesium Hydroxide (Milk Of Magnesia Liq) 30 ml DAILY PRN PO CONSTIPATION; Start 08/30/17 at 11:45 Al Hydrox/Mg Hydrox/Simethicone (Mag-Al Plus Susp Liq) 30 ml Q6H PRN PO DYSPEPSIA Last administered on 08/31/17 11:13; Start 08/30/17 at 11:45 Trazodone HCl (Desyrel) 50 mg HS PRN PO INSOMNIA Last administered on 21:58; Start 08/30/17 at 11:45 Citalopram Hydrobromide (CeleXA) 20 mg DAILY PO Last administered on 09/01/17 09:34; Start 08/31/17 at 09:00 Glipizide (Glucotrol) 5 mg DAILY PO Last administered on 09/01/17 09:33; Start 08/30/17 at 16:30 Hydrochlorothiazide (Hydrodiuril) 25 mg DAILY PO Last administered on 09:34; Start 08/30/17 at 16:30 Insulin Aspart Prota 70%/Aspart 30% (NovoLOG MIX 70/ 30 INJ) 32 units DAILY@ 1600 SQ Last administered on 08/30/17 16:30; Start 08/30/17 at 16:30 Insulin Aspart Prota 70%/Aspart 30% (NovoLOG MIX 70/ 30 INJ) 42 units DAILY@ 0600 SQ Last administered on 08/31/17 08:00; Start 08/31/17 at 06:00 Lamotrigine (LaMICtal) 100 mg BID PO Last administered on 09/01/17 09:34; Start 08/30/17 at 21:00 Metformin HCl (Glucophage) 1,000 mg BIDPC PO Last administered on 08/31/17 09: 12; Start 08/30/17 at 18:00; Status Future Hold Naproxen (Naprosyn) 500 mg BID PO Last administered on 08/31/17 09:13; Start 08/30/17 at 21:00; Status Future Hold Venlafaxine HCl (Effexor Xr) 75 mg DAILY PO ; Start 08/30/17 at 16:30; Stop 08/30/17 at 17:01; Status DC Venlafaxine HCl (Effexor Xr) 150 mg DAILY PO ; Start 08/30/17 at 16:30; Stop at 17:01; Status DC Fenofibrate (Tricor) 145 mg DAILY PO Last administered on 09/01/17 09:34; Start 08/30/17 at 16:30 Lisinopril (Prinivil) 2.5 mg DAILY PO Last administered on 09/01/17 09:37; Start 08/30/17 at 16:30 Venlafaxine HCl (Effexor Xr) 75 mg DAILY PO ; Start 08/31/17 at 09:00; Stop 08/31/17 at 12:51; Status DC Venlafaxine HCl (Effexor Xr) 150 mg DAILY PO ; Start 08/31/17 at 09:00; Stop at 12:51; Status DC Ondansetron HCl (Zofran Odt) 4 mg Q6H PRN PO NAUSEA Last administered on 21:58; Start 08/31/17 at 12:45 Dextrose (D50w (Vial) Inj) 50 ml UNSCH PRN IV PUSH HYPOGLYCEMIA-SEE COMMENTS; Start 08/31/17 at 12:45 Glucagon (Glucagon Inj) 1 mg UNSCH PRN OTHER HYPOGLYCEMIA-SEE COMMENTS; Start 08/31/17 at 12:45 Insulin Aspart (NovoLOG SUPPLEMENTAL SCALE) 1 ACHS SLIDING SCALE SQ Last administered on 09/01/17 07:53; Start 08/31/17 at 17:00 Aripiprazole (Abilify) 2 mg DAILY PO Last administered on 09/01/17 09:35; Start 09/01/17 at 09:00 Pantoprazole Sodium (Protonix) 40 mg DAILY PO Last administered on 09/01/17 09 :34; Start 08/31/17 at 16:45 A/P Assessment and Plan A/P - bipolar disorder with suicidal thoughts- management per psych. -nausea;improved- antiemetics as needed for now- -frequent falls- fall precautions-consulted PT- awaiting result of MRI brain that she had recently.- being followed-up by her neurologist in [place]. -diabetes mellitus ; accu-check with [facility]- hold her home meds for now- start on low-dose levemir at the bedtime and continue to monitor. -hypertension; resumed her home meds- will monitor and adjust the regimen as needed. -chronic renal insufficiency with unknown duration- suspect CKD due to diabetes and hypertension;avoid NSAIDs and nephrotoxins- improved- will monitor. -vitamin D deficiency- will start replacement -elevated TSH; will check free T4 Maru Herrera MD Sep 01, 2017 12:15
[2017-09-01] MEDS: CHOLECALCIFEROL (VIT D3) 5000 UNIT CAP PO SCH ×2 (14:00)
[2017-09-01 17:33] VITALS: BP 170/73; PULSE 80; RESP 17; TEMP 98.3; O2SAT 94
[2017-09-01] MEDS: traZODone HCL 50 MG TAB PO PRN ×2 (20:34)
[2017-09-01] MEDS: ONDANSETRON ODT 4 MG TAB PO PRN ×2 (20:34)
[2017-09-01] MEDS ORDERED: INSULIN DETEMIR 100 UNITS/ML VIAL SQ SCH ×2 (21:00)
[2017-09-01] MEDS ORDERED: ATORVASTATIN 20 MG TAB PO SCH ×2 (21:00)
[2017-09-02 04:49] VITALS: BP 134/70; PULSE 86; RESP 18; TEMP 96.5; O2SAT 97
[2017-09-02] MEDS: INSULIN ASPART SUPPLEMENTAL SCALE SQ SCH ×4 (08:00→11:52)
[2017-09-02] MEDS: ARIPiprazole 2 MG TAB PO SCH ×2 (08:35)
[2017-09-02] MEDS: FENOFIBRATE 145 MG TAB PO SCH ×2 (08:35)
[2017-09-02] MEDS: PANTOPRAZOLE SOD 40 MG DELAYED RELEASE TAB PO SCH ×2 (08:36)
[2017-09-02] MEDS: CHOLECALCIFEROL (VIT D3) 5000 UNIT CAP PO SCH ×2 (08:36)
[2017-09-02] MEDS: lamoTRIgine 100 MG TAB PO SCH ×2 (08:36)
[2017-09-02] MEDS: HYDROCHLOROTHIAZIDE 25 MG TAB PO SCH ×2 (08:36)
[2017-09-02] MEDS: LISINOPRIL 5 MG TAB PO SCH ×2 (08:36)
[2017-09-02] MEDS: CITALOPRAM HYDROBROMIDE 20 MG TAB PO SCH ×2 (08:41)
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
--- NOTE | 2017-09-02 09:38 | PD.TTN ---
Patient Problems 1. Discharge planning 2. Medication compliance 3. Knowledge deficit 4. Lack of coping skills Progress Toward Goals Provider Present: Dr. Nunu Mcdowell Provider Input: 09/02/17 if family is supportive of taking patient home, she is able to discharge home today Nurse(s) Input: [place]; patient is med compliant and no issues but limited insight cried at times med consults are still in per family she likes the "sick role" Psychiatric Counselors Present: Dominique Fontaine LCSW Psych Therapist Input: Patient is established with [facility] in [place] and states she sees her provider once a week at this time and is med compliant she feels safe to discharge awaiting family visit today to discuss with family and will call provider to ensure she can be seen for outpatient follow up Dominique Fontaine LCSW Sep 02, 2017 09:38
[2017-09-02] MEDS ORDERED: ACETAMINOPHEN 325 MG TAB PO PRN ×2 (09:45)
[2017-09-02] MEDS ORDERED: diphenhydrAMINE HCL 50 MG CAP PO PRN ×2 (09:45)
[2017-09-02] MEDS ORDERED: ALUMINUM/MAGNESIUM/SIMETH 30 ML CUP PO PRN ×2 (09:45)
[2017-09-02] MEDS ORDERED: MAGNESIUM HYDROXIDE SUSP 30 ML CUP PO PRN ×2 (09:45)
[2017-09-02] MEDS ORDERED: hydrOXYzine HCL 50 MG TAB PO PRN ×2 (09:45)
[2017-09-02] MEDS ORDERED: ABIL2TAB2 PO ×2 (11:09)
--- NOTE | 2017-09-02 11:12 | HHI.DS ---
Psychiatry Discharge Summary Inpatient Psychiatric care?: Yes Advance Directive: No Reason Not Provided: Did not Want Mental Health AdvanceDirective: No Health Care Proxy: No Admission Admission Date Aug 30, 2017 at 11:40 Admission Diagnosis: (1) Schizoaffective disorder, depressive type ICD Code: F25.1 - Schizoaffective disorder, depressive type Brief History 62-year-old female brought in under a Cha act for self-injurious behavior. Patient has apparently cut her left wrist twice in the last week. She is repeatedly asserting "the voices told me to do it". She claims the voices come from the jo. She has also reported to our nurse practitioner, Rozina, that she sees shadows. She is afraid in general of being harmed by others but feels safer in the hospital. This physician notes the patient has a multiyear history of mental illness with repeated psychiatric hospitalizations as well as some type of treatment at a residential facility in [place]. At this time the patient is unable to contract for safety. She reportedly does not hear the voices in the emergency department funmilayo pod room but did report hearing the voices telling her to harm herself, at her niece's home. She was staying at her niece's home until her daughter could care for her. The patient is disabled from work as a result of these mental illness symptoms. She is obviously distraught, tearful, anxious, paranoid, and afraid of the command auditory hallucinations telling her to harm herself. She denies the use of alcohol or drugs at this time. Tobacco Use In Past 30 Days: No Tobacco Past 30 Days Alcohol Use: Never Hospital Course After seeing patient earlier today with further observation, this also telephonic conversation with patient's family. They feel she is stabilized somewhat they're willing to ever be discharged to them today. We will do an adjustment in the Abilify to 2 mg twice a day. Patient be given a two-week supply of the medication. She is to continue taking room scheduled medication. Follow-up with own psychiatrist in [place] within a week of her returning to that location. Patient continues calm cooperative denying suicidality homicidality, states the voices are gone at the present time. She feels safe being discharged to her family. Wanting to return to her own medical team and family in [place] Results Blood Pressure 134 / 70 Vital Signs Date Time Temp Pulse Resp B/P (MAP) Pulse Ox O2 Delivery O2 Flow Rate FiO2 09/02/17 04:49 96.5 86 18 134/70 (91) 97 08/30/17 12:05 Room Air Laboratory Tests Test 08/31/17 11:12 White Blood Count 12.9 TH/MM3 (4.0-11.0) Neutrophils # (Auto) 8.8 TH/MM3 (1.8-7.7) Eosinophils # (Auto) 0.5 TH/MM3 (0-0.4) Blood Urea Nitrogen 26 MG/DL (7-18) Creatinine 1.35 MG/DL (0.50-1.00) Random Glucose 70 MG/DL (74-106) Estimat Glomerular Filtration Rate 40 ML/MIN (>89) Hemoglobin A1c 7.9 % (4.3-6.0) Triglycerides Level 400 MG/DL (42-150) Cholesterol Level 291 MG/DL (120-200) LDL Cholesterol 165 MG/DL (0-99) 25-Hydroxy Vitamin D Total 10.7 ng/ML (30-100) Thyroid Stimulating Hormone 3rd Gen 6.430 uIU/ML (0.358-3.740) Laboratory Results Test 08/31/17 11:12 Cholesterol Level 291 MG/DL (120-200) HDL Cholesterol 46.4 MG/DL (40.0-60.0) Hemoglobin A1c 7.9 % (4.3-6.0) LDL Cholesterol 165 MG/DL (0-99) Triglycerides Level 400 MG/DL (42-150) Summary of Procedures None done Imaging Last Impressions Head CT 08/30/17 0000 Signed Impressions: Service Date/Time: Wednesday, August 30, 2017 02:24 - CONCLUSION: Negative noncontrast head CT. Dwight Carey MD Cervical Spine CT 08/30/17 0000 Signed Impressions: Service Date/Time: Wednesday, August 30, 2017 02:26 - CONCLUSION: Intact cervical spine. Degenerative changes as above. Dwight Carey MD Pending results at discharge: No Medications # of Antipsychotic meds at D/C: 1 Approp Antipsych med options 1 - Minimum of three failed multiple trials of monotherapy. 2 - Documented plan to taper to monotherapy due to previous use of multiple meds OR cross-taper in progress at D/C. 3 - Documentation of augmentation of Clozapine. 4 - Justification other than those listed in allowable values 1-3, document here : Discharge Discharge Date: Sep 02, 2017 Discharge Diagnosis: (1) Schizoaffective disorder, depressive type Diagnosis: Principal ICD Code: F25.1 - Schizoaffective disorder, depressive type Pt Condition on Discharge: Stable Discharge Disposition: Discharge Home Discharge Instructions Diet Instructions: As Tolerated, No Restrictions Activities you can perform: Regular-No Restrictions Scheduled Appointment: NPI Discharge Time > 30 minutes Mental Status Examination Appearance: Appropriate Consciousness: Alert Orientation: Person, Place Motor Activity: Normal gait Speech: Hesitant Language: Adequate Fund of Knowledge: Adequate Attention and Concentration: Easily Distracted Memory: Unremarkable Mood: Sad, Anxious Affect: Sad, Anxious Thought Process & Associations: Intact, Circumstantial, Tangential Thought Content: Bizarre thinking, Thought blocking, Delusional Hallucination Type: None (patient states some vague noises in her head) Delusion Type: Paranoid Suicidal Ideation: Yes (denies this time) Suicidal Plan: Yes (denies at this time) Suicidal Intention: Yes (denies this time) Homicidal Ideation: No Homicidal Plan: No Homicidal Intention: No Insight: Poor Judgment: Impulsive Discharge/Advance Care Plan Health Problems: (1) Schizoaffective disorder, depressive type Goals to promote your health * To prevent worsening of your condition and complications * To maintain your health at the optimal level Directions to meet your goals Take your medications as prescribed Follow your dietary instruction Follow activity as directed Keep your appointments as scheduled Take your immunizations and boosters as scheduled If your symptoms worsen call your PCP, if no PCP go to Urgent Care Center or Emergency Room For 20/05 questions related to your inpatient stay or results of tests pending at discharge, please contact Dr. Dwight Frias at Smoking is Dangerous to Your Health. Avoid second hand smoking Dwight Frias MD Sep 02, 2017 11:12
[2017-09-02] MEDS ORDERED: ARIPiprazole 2 MG TAB PO ONE ×2 (12:00)
--- NOTE | 2017-09-02 12:44 | HHI.PR ---
Subjective Remarks overall doing fine. no new complaints. d/w the RN and no acute issues over night. Objective Vitals Vital Signs Date Time Temp Pulse Resp B/P (MAP) Pulse Ox O2 Delivery O2 Flow Rate FiO2 09/02/17 04:49 96.5 86 18 134/70 (91) 97 09/01/17 17:33 98.3 80 17 170/73 (105) 94 I/O 09/01/17 09/01/17 09/01/17 09/02/17 09/02/17 09/02/17 07:00 15:00 23:00 07:00 15:00 23:00 Intake Total 0 ml 480 ml 550 ml 360 ml 600 ml Balance 0 ml 480 ml 550 ml 360 ml 600 ml Intake Oral 0 ml 480 ml 550 ml 360 ml 600 ml # Voids 1 3 3 Result Diagram: 08/31/17 1112 08/31/17 1112 Imaging Last Impressions Head CT 08/30/17 0000 Signed Impressions: Service Date/Time: Wednesday, August 30, 2017 02:24 - CONCLUSION: Negative noncontrast head CT. Dwight Carey MD Cervical Spine CT 08/30/17 0000 Signed Impressions: Service Date/Time: Wednesday, August 30, 2017 02:26 - CONCLUSION: Intact cervical spine. Degenerative changes as above. Dwight Carey MD Objective Remarks GENERAL: This is a well-nourished, well-developed patient, in no apparent distress. CARDIOVASCULAR: Regular rate and regular rhythm without murmurs, gallops, or rubs. RESPIRATORY: Clear to auscultation. Breath sounds equal bilaterally. No wheezes , rales, or rhonchi. GASTROINTESTINAL: Abdomen soft, non-tender, nondistended. Normal, active bowel sounds MUSCULOSKELETAL: Extremities without clubbing, cyanosis, or edema. NEURO: Alert & Oriented x4 to person, place, time, situation. Moves all ext x4 Medications and IVs Current Medications Quetiapine Fumarate (SEROquel) 100 mg ONCE ONCE PO Last administered on 22:45; Start 08/29/17 at 22:45; Stop 08/29/17 at 22:46; Status DC Lorazepam (Ativan) 1 mg Q6H PRN PO MODERATE TO SEVERE ANXIETY Last administered on 08/31/17 14:41; Start 08/30/17 at 11:45 Lorazepam (Ativan Inj) 1 mg Q6H PRN IM MODERATE TO SEVERE ANXIETY; Start at 11:45 Diphenhydramine HCl (Benadryl) 50 mg Q6H PRN PO For mild anxiety and/or EPS; Start 08/30/17 at 11:45 Diphenhydramine HCl (Benadryl Inj) 50 mg Q6H PRN IM For mild anxiety and/or EPS ; Start 08/30/17 at 11:45 Acetaminophen (Tylenol) 650 mg Q4H PRN PO Pain 1-5 or Temp >101F Last administered on 09/01/17 09:34; Start 08/30/17 at 11:45 Magnesium Hydroxide (Milk Of Magnesia Liq) 30 ml DAILY PRN PO CONSTIPATION; Start 08/30/17 at 11:45 Al Hydrox/Mg Hydrox/Simethicone (Mag-Al Plus Susp Liq) 30 ml Q6H PRN PO DYSPEPSIA Last administered on 08/31/17 11:13; Start 08/30/17 at 11:45 Trazodone HCl (Desyrel) 50 mg HS PRN PO INSOMNIA Last administered on 20:34; Start 08/30/17 at 11:45 Citalopram Hydrobromide (CeleXA) 20 mg DAILY PO Last administered on 09/02/17 08:41; Start 08/31/17 at 09:00 Glipizide (Glucotrol) 5 mg DAILY PO Last administered on 09/01/17 09:33; Start 08/30/17 at 16:30; Status Future Hold Hydrochlorothiazide (Hydrodiuril) 25 mg DAILY PO Last administered on 08:36; Start 08/30/17 at 16:30 Insulin Aspart Prota 70%/Aspart 30% (NovoLOG MIX 70/ 30 INJ) 32 units DAILY@ 1600 SQ Last administered on 08/30/17 16:30; Start 08/30/17 at 16:30; Status Future Hold Insulin Aspart Prota 70%/Aspart 30% (NovoLOG MIX 70/ 30 INJ) 42 units DAILY@ 0600 SQ Last administered on 08/31/17 08:00; Start 08/31/17 at 06:00; Status Future Hold Lamotrigine (LaMICtal) 100 mg BID PO Last administered on 09/02/17 08:36; Start 08/30/17 at 21:00 Metformin HCl (Glucophage) 1,000 mg BIDPC PO Last administered on 08/31/17 09: 12; Start 08/30/17 at 18:00; Status Future Hold Naproxen (Naprosyn) 500 mg BID PO Last administered on 08/31/17 09:13; Start 08/30/17 at 21:00; Status Future Hold Venlafaxine HCl (Effexor Xr) 75 mg DAILY PO ; Start 08/30/17 at 16:30; Stop 08/30/17 at 17:01; Status DC Venlafaxine HCl (Effexor Xr) 150 mg DAILY PO ; Start 08/30/17 at 16:30; Stop at 17:01; Status DC Fenofibrate (Tricor) 145 mg DAILY PO Last administered on 09/02/17 08:35; Start 08/30/17 at 16:30 Lisinopril (Prinivil) 2.5 mg DAILY PO Last administered on 09/02/17 08:36; Start 08/30/17 at 16:30 Venlafaxine HCl (Effexor Xr) 75 mg DAILY PO ; Start 08/31/17 at 09:00; Stop 08/31/17 at 12:51; Status DC Venlafaxine HCl (Effexor Xr) 150 mg DAILY PO ; Start 08/31/17 at 09:00; Stop at 12:51; Status DC Ondansetron HCl (Zofran Odt) 4 mg Q6H PRN PO NAUSEA Last administered on 20:34; Start 08/31/17 at 12:45 Dextrose (D50w (Vial) Inj) 50 ml UNSCH PRN IV PUSH HYPOGLYCEMIA-SEE COMMENTS; Start 08/31/17 at 12:45 Glucagon (Glucagon Inj) 1 mg UNSCH PRN OTHER HYPOGLYCEMIA-SEE COMMENTS; Start 08/31/17 at 12:45 Insulin Aspart (NovoLOG SUPPLEMENTAL SCALE) 1 ACHS SLIDING SCALE SQ Last administered on 09/02/17 11:52; Start 08/31/17 at 17:00 Aripiprazole (Abilify) 2 mg DAILY PO Last administered on 09/02/17 08:35; Start 09/01/17 at 09:00 Pantoprazole Sodium (Protonix) 40 mg DAILY PO Last administered on 09/02/17 08 :36; Start 08/31/17 at 16:45 Atorvastatin Calcium (Lipitor) 20 mg HS PO Last administered on 09/01/17 20:30 ; Start 09/01/17 at 21:00 Cholecalciferol (Vitamin D3) 5,000 units DAILY PO Last administered on 08:36; Start 09/01/17 at 14:00 Insulin Detemir (Levemir Inj) 10 units HS SQ Last administered on 09/01/17 20: 31; Start 09/01/17 at 21:00 Diphenhydramine HCl (Benadryl) 50 mg HS PRN PO INSOMNIA; Start 09/02/17 at 09: 45 Acetaminophen (Tylenol) 650 mg Q4H PRN PO Pain 1-5 or Temp >101F; Start at 09:45; Stop 09/02/17 at 10:13; Status DC Magnesium Hydroxide (Milk Of Magnesia Liq) 30 ml DAILY PRN PO CONSTIPATION; Start 09/02/17 at 09:45; Stop 09/02/17 at 10:13; Status DC Al Hydrox/Mg Hydrox/Simethicone (Mag-Al Plus Susp Liq) 30 ml Q6H PRN PO DYSPEPSIA; Start 09/02/17 at 09:45; Stop 09/02/17 at 10:13; Status DC Hydroxyzine HCl (Atarax) 50 mg Q6H PRN PO ANXIETY; Start 09/02/17 at 09:45 Aripiprazole (Abilify) 2 mg ONCE ONCE PO ; Start 09/02/17 at 12:00; Stop at 12:01; Status DC A/P Assessment and Plan A/P - bipolar disorder with suicidal thoughts- management per psych. -nausea;improved- antiemetics as needed for now- -frequent falls- fall precautions-consulted PT- being followed-up by her neurologist in [place]. -diabetes mellitus ; f/u as outpatient- resume her home regimen upon discharge. -hypertension; resumed her home meds- will monitor and adjust the regimen as needed. -chronic renal insufficiency with unknown duration- suspect CKD due to diabetes and hypertension;avoid NSAIDs and nephrotoxins- improved- will monitor. -vitamin D deficiency- started replacement- f/u as outpatient. -subclinical hypothyroidism- f/u as outpatient. Maru Herrera MD Sep 02, 2017 12:44
== END 2017-09-02 13:15 | disposition home or self-care (01) | DRG 885 ==
LOC: NEPD 16:42 → NEDA 08-30 11:40 → H250 08-30 15:11
PROVIDERS: ADMIT Psychiatry & Neurology Psychiatry; ATTEND Psychiatry & Neurology Psychiatry
DX: F25.1 Schizoaffective disorder, depressive type (principal); E11.22 Type 2 diabetes mellitus with diabetic chronic kidney disease; R45.851 Suicidal ideations; D64.9 Anemia, unspecified; I12.9 Hypertensive chronic kidney disease with stage 1 through stage 4 chronic kidney disease, or unspecified chronic kidney disease; S61.512A Laceration without foreign body of left wrist, initial encounter; N18.9 Chronic kidney disease, unspecified; E55.9 Vitamin D deficiency, unspecified; E03.9 Hypothyroidism, unspecified; X78.8XXA Intentional self-harm by other sharp object, initial encounter; W06.XXXA Fall from bed, initial encounter; Y92.238 Other place in hospital as the place of occurrence of the external cause; Z79.84 Long term (current) use of oral hypoglycemic drugs; Z91.410 Personal history of adult physical and sexual abuse
CPT/HCPCS: 70450; 72125; 80053; 80061; 80307; 82306; 82607; 82948; 83036; 84439; 84443; 85025; 93005; J1815